=== PATIENT | male | born 1980 | race Caucasian/White ===

== ENCOUNTER → 2019-08-12 | Outpatient (CLI) | payer OTHER ==
[~2019-08-12] MED LIST: BENZ1TAB5 PO; DULO30CA2 PO; IOHEXOL 300 MG/ML 100ML VIAL. IV ONE; LEVE750T41 PO; LEXAPRO20 MG PO; OLAN7.5T3 PO
--- NOTE | 2019-08-12 13:58 | KCIC ---
CT CHEST WO/W CONTRAST INDICATION: Abnormal chest radiograph Comparison: None. TECHNIQUE: Following the uneventful administration of intravenous contrast, 90 cc Omnipaque 300, axial CT sections were obtained through the lungs and upper abdomen. Multiplanar reconstructions and MIP images were obtained. PQRS compliance statement: One or more of the following individualized dose reduction techniques were utilized for this examination: 1. Automated exposure control 2. Adjustment of the mA and/or kV according to patient size 3. Use of iterative reconstruction technique FINDINGS: Lungs and Airways: No pulmonary mass or consolidation. Accessory azygos fissure. No abnormality of the central airways. Pleura: The pleural spaces are normal. Heart and Mediastinum: The visualized thyroid is normal in size and attenuation. No axillary or supraclavicular lymphadenopathy. No mediastinal, hilar or retrocrural lymphadenopathy. The heart and pericardium are within normal limits. The great vessels of the thorax are normal. Abdomen: Limited images through the upper abdomen show no abnormality of the visualized organs. Bones and Soft Tissues: The visualized bones and chest wall soft tissues are within normal limits. IMPRESSION: 1. No pulmonary mass or consolidation. 2. No thoracic lymphadenopathy. Electronically signed by: Manuel Arora MD (08/12/2019 1:55 PM) [facility]
== END | disposition home or self-care (01) ==
LOC: KCIC CT 09:06
PROVIDERS: ATTEND Nurse Practitioner Family
DX: R91.8 Other nonspecific abnormal finding of lung field (principal)
CPT/HCPCS: 71270; Q9967